=== PATIENT | male | born 1990 | race African-American/Black ===

== ENCOUNTER 2017-11-22 20:16 | Emergency (ER) | payer OTHER ==
[~2017-11-22] VITALS: Ht 182.9 cm; Wt 113.4 kg
[2017-11-22] MEDS ORDERED: ALBUTEROL2.5 MG/3 M INH (20:33)
[2017-11-22] MEDS ORDERED: ADVAIR 100-501 EACH INH (20:33)
[2017-11-22 20:43] VITALS: BP 126/80
[2017-11-22] MEDS ORDERED: Albuterol 90mcg Inhaler 8gm INH PRN (20:45)
[2017-11-22] MEDS ORDERED: Ipratropium 0.02% Inh Soln 2.5ml UD HHN ONE (20:45)
[2017-11-22] MEDS ORDERED: Albuterol ud Inhalation HHN ONE (20:45)
[2017-11-22 21:42] VITALS: BP 130/76
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
[2017-11-22] MEDS ORDERED: ALBUTEROL SULF8.5 GM INH (22:01)
[2017-11-22] MEDS ORDERED: QVAR7.3 GM INH (22:01)
[2017-11-22] MEDS ORDERED: PREDNISONE20 MG ORAL (22:01)
[2017-11-22] MEDS ORDERED: ALBUTEROL2.5 MG/3 M HHN (22:04)
[2017-11-22] MEDS ORDERED: CHLOR-TRIMETON4 MG PO (22:04)
[2017-11-22 22:12] VITALS: BP 130/76
== END 2017-11-22 22:17 | disposition home or self-care (01) ==
LOC: EMR 22:07
DX: J45.901 Unspecified asthma with (acute) exacerbation (principal); J32.9 Chronic sinusitis, unspecified; F17.200 Nicotine dependence, unspecified, uncomplicated
CPT/HCPCS: 94640; 99284; J7512

== ENCOUNTER 2017-12-16 09:26 | Emergency (ER) | payer SELFPAY ==
[~2017-12-16] VITALS: Ht 182.9 cm; Wt 97.5 kg
[~2017-12-16 09:26] MED LIST: ADVAIR 100-501 EACH INH; ALBUTEROL SULF8.5 GM INH; ALBUTEROL2.5 MG/3 M HHN; ALBUTEROL2.5 MG/3 M INH; CHLOR-TRIMETON4 MG PO; PREDNISONE20 MG ORAL; QVAR7.3 GM INH
[2017-12-16 09:48] VITALS: BP 131/82
[2017-12-16] MEDS ORDERED: Tylenol #3 tab (300mg/30mg) ORAL ONE (10:00)
[2017-12-16] MEDS ORDERED: Ketorolac 60mg Inj IM ONE (10:00)
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
[2017-12-16 11:20] VITALS: BP 129/78
[2017-12-16] MEDS ORDERED: ROBAXIN-750750 MG PO (11:21)
[2017-12-16] MEDS ORDERED: IBUPROFEN600 MG ORAL (11:21)
[2017-12-16 11:25] VITALS: BP 129/78
--- NOTE | 2017-12-17 10:20 | Diagnostic Imaging Report ---
Indication: Chest pain Technique: One view of the chest Comparison: none Findings: 4 cm ovoid masslike opacity is seen in the right lung base. The lungs and pleural spaces are otherwise clear. The heart size is normal. Impression: Right basilar masslike opacity, most likely inflammatory given patient's age possibly neoplasm should be considered as well. Recommend CT for better characterization No acute process otherwise This agrees with the preliminary interpretation provided overnight by [facility].
--- NOTE | 2017-12-17 10:21 | Diagnostic Imaging Report ---
Indication: Hip pain Technique: 2 views of the left hip Comparison: none Findings: No acute fractures. No dislocations. Joint spaces are preserved Impression: Negative This agrees with the preliminary interpretation provided overnight by [facility].
== END 2017-12-16 11:25 | disposition home or self-care (01) ==
LOC: EMR 09:53
DX: T14.8XXA Other injury of unspecified body region, initial encounter (principal); V43.52XA Car driver injured in collision with other type car in traffic accident, initial encounter; Y92.488 Other paved roadways as the place of occurrence of the external cause; M54.2 Cervicalgia; M25.552 Pain in left hip; M79.651 Pain in right thigh; M25.561 Pain in right knee; R07.9 Chest pain, unspecified; R91.8 Other nonspecific abnormal finding of lung field; F17.200 Nicotine dependence, unspecified, uncomplicated
CPT/HCPCS: 71045; 73502; 96372; 99284